=== PATIENT | female | born 1990 | race African-American/Black ===

== ENCOUNTER 2018-10-26 08:48 | Emergency (ER) | payer MEDICAID ==
[~2018-10-26] VITALS: Ht 165.1 cm; Wt 59.0 kg
[2018-10-26] MEDS ORDERED: LORAZEPAM 2MG/ML CPJ IV ONE (10:15)
[2018-10-26] MEDS ORDERED: LEVETIRACETAM 1000MG/100ML 100 ML IV ONE (10:15)
[2018-10-26 10:32] LABS: BASOPHILS % 0.5 % (0.0-2.0); EOSINOPHILS % 0.3 % (0.0-5.0); HEMATOCRIT. 34.4 % (36.0-48.0); LYMPHOCYTES % 24.8 % (20.0-50.0); MEAN CORPUSCULAR HEMOGLOBIN 27.5 pg (28.0-32.0); MEAN CORPUSCULAR VOLUME 86.1 fL (81.0-99.0); MONOCYTES % 5.8 % (2.0-8.0); NEUTROPHILS % 68.6 % (40.0-76.0); RED BLOOD CELL COUNT 3.99 mill/uL (4.2-5.4)
[2018-10-26 10:39] LABS: CHLORIDE 107 mEq/L (98-107)
[2018-10-26 10:48] LABS: ETHANOL BLOOD < 10 mg/dL
[2018-10-26 11:32] LABS: PLATELET 383 x1000/uL (130-400)
[2018-10-26 12:44] LABS: CLARITY URINE CLEAR (CLEAR); COLOR URINE YELLOW (YELLOW); KETONES URINE NEGATIVE (NEGATIVE); LEUKOCYTE ESTERASE URINE NEGATIVE (NEGATIVE); NITRITE URINE NEGATIVE (NEGATIVE); OCCULT BLOOD URINE TRACE (NEGATIVE); PROTEIN URINE NEGATIVE (NEGATIVE); SPECIFIC GRAVITY URINE 1.025 (1.005-1.030); UROBILINOGEN URINE 0.2 E.U./dL (0.2-1.0)
[2018-10-26 13:05] LABS: *AMPHETAMINES SCREEN URINE NEGATIVE (NEGATIVE); *BARBITURATES SCREEN URINE NEGATIVE (NEGATIVE); *BENZODIAZEPINES SCREEN URINE NEGATIVE (NEGATIVE); *COCAINE SCREEN URINE NEGATIVE (NEGATIVE); METHADONE URINE SCREEN NEGATIVE (NEGATIVE); OPIATES URINE SCREEN NEGATIVE (NEGATIVE)
[2018-10-26 13:06] LABS: PHENCYCLIDINE URINE SCREEN NEGATIVE (NEGATIVE)
[2018-10-26 13:10] LABS: CANNABINOID URINE SCREEN PRESUMTIVE POSITIVE (NEGATIVE)
[2018-10-26 15:00] VITALS: BP 123/89
== END 2018-10-26 15:03 | disposition home or self-care (01) ==
LOC: ER 08:48
DX: G40.909 Epilepsy, unspecified, not intractable, without status epilepticus (principal); G10 Huntington's disease
CPT/HCPCS: 36415; 71045; 80053; 80305; 80320; 81003; 81025; 85025; 99284; J1953; J2060; A4315; G0480

== ENCOUNTER 2018-10-31 10:20 | Emergency (ER) | payer MEDICAID ==
[~2018-10-31] VITALS: Ht 170.2 cm; Wt 59.0 kg
[2018-10-31] MEDS ORDERED: LORAZEPAM 2MG/ML CPJ IV STA (10:42)
[2018-10-31] MEDS ORDERED: LEVETIRACETAM 500MG PREMIX 100 ML IV ONE ×2 (10:45→12:00)
[2018-10-31 11:09] LABS: BASOPHILS % 0.5 % (0.0-2.0); EOSINOPHILS % 2.6 % (0.0-5.0); HEMATOCRIT. 33.3 % (36.0-48.0); HEMOGLOBIN. 10.9 g/dL (12.0-16.0); MEAN CORPUSCULAR HEMOGLOBIN 27.9 pg (28.0-32.0); MEAN CORPUSCULAR VOLUME 84.9 fL (81.0-99.0); MEAN PLATELET VOLUME 7.5 fl (7.4-10.4); MONOCYTES % 11.1 % (2.0-8.0); NEUTROPHILS % 68.8 % (40.0-76.0); PLATELET 453 x1000/uL (130-400); RED BLOOD CELL COUNT 3.92 mill/uL (4.2-5.4); RED CELL DISTRIBUTION WIDTH 17.3 % (11.6-14.6)
[2018-10-31 11:15] LABS: CHLORIDE 106 mEq/L (98-107)
[2018-10-31 11:19] LABS: ETHANOL BLOOD < 10 mg/dL
[2018-10-31 11:26] LABS: HCG SCREEN NEGATIVE
[2018-10-31 11:41] LABS: CLARITY URINE CLOUDY (CLEAR); COLOR URINE YELLOW (YELLOW); KETONES URINE NEGATIVE (NEGATIVE); LEUKOCYTE ESTERASE URINE 2+ (NEGATIVE); NITRITE URINE NEGATIVE (NEGATIVE); OCCULT BLOOD URINE NEGATIVE (NEGATIVE); PH URINE 8.5 (4.5-8.0); PROTEIN URINE NEGATIVE (NEGATIVE)
[2018-10-31] MEDS ORDERED: SODIUM CHLORIDE 0.9% 1,000 ML IV ONE (12:00)
[2018-10-31] MEDS ORDERED: CEFTRIAXONE 1 G PREMIX 50 ML IV ONE (12:00)
[2018-10-31 12:13] LABS: *AMPHETAMINES SCREEN URINE NEGATIVE (NEGATIVE); *BARBITURATES SCREEN URINE NEGATIVE (NEGATIVE); *BENZODIAZEPINES SCREEN URINE NEGATIVE (NEGATIVE); CANNABINOID URINE SCREEN NEGATIVE (NEGATIVE); METHADONE URINE SCREEN NEGATIVE (NEGATIVE); OPIATES URINE SCREEN NEGATIVE (NEGATIVE); PHENCYCLIDINE URINE SCREEN NEGATIVE (NEGATIVE)
[2018-10-31 12:14] LABS: *COCAINE SCREEN URINE NEGATIVE (NEGATIVE)
[2018-10-31 17:00] VITALS: BP 116/70
== END 2018-10-31 19:13 | disposition home or self-care (01) ==
LOC: ER 10:20
DX: N39.0 Urinary tract infection, site not specified (principal)
CPT/HCPCS: 36415; 71045; 80053; 80305; 80320; 81003; 81025; 82542; 84703; 85025; 93005; 96365; 96366; 96368; 96375; 99284; J0696; J1953; J2060; J7030; G0480